=== PATIENT | male | born 1995 | race Caucasian/White ===

== ENCOUNTER 2019-04-08 04:17 | Emergency (ER) | payer OTHER ==
[~2019-04-08] VITALS: Ht 182.9 cm; Wt 140.6 kg
[~2019-04-08 04:17] MED LIST: ATOM10CA PO
[2019-04-08 04:24] VITALS: BP 128/84
[2019-04-08] MEDS: ACETAMINOPHEN/CODEINE 300/30MG 1 TAB PO ONE (04:52)
[2019-04-08 05:07] VITALS: BP 128/84
== END 2019-04-08 05:07 | disposition home or self-care (01) ==
LOC: MED 04:17
DX: K04.7 Periapical abscess without sinus (principal); Z79.899 Other long term (current) drug therapy
CPT/HCPCS: 99282

== ENCOUNTER 2021-05-30 23:44 | Emergency (ER) | payer SELFPAY ==
[~2021-05-30] VITALS: Ht 182.9 cm; Wt 127.0 kg
[2021-05-30 23:45] VITALS: BP 147/90
--- NOTE | 2021-05-30 23:45 | NUR ---
to bed ambulatory
--- NOTE | 2021-05-30 23:54 | NUR ---
DR WATERMAN AT BEDSIDE FOR EXAM
--- NOTE | 2021-05-31 | NUR ---
RECEIVED IN BED 9 WITH C/O TOOTH PAIN X 4 HOURS. 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
[2021-05-31] MEDS ORDERED: NAPR-54 PO (00:10)
[2021-05-31] MEDS ORDERED: AMOX500C25 PO (00:10)
[2021-05-31] MEDS ORDERED: ACET-8386 PO (00:10)
[2021-05-31 00:24] VITALS: BP 147/90
--- NOTE | 2021-05-31 00:24 | NUR ---
Patient discharged with v/s stable. Written and verbal after care instructions given and explained. Patient alert, oriented and verbalized understanding of instructions. Ambulatory with steady gait. All questions addressed prior to discharge. ID band removed. Patient advised to follow up with PMD. Rx of HYDROCODONE, AMOXICILLIN, AND NAPROSYN given. Patient educated on indication of medication including possible reaction and side effects. Opportunity to ask questions provided and answered.
== END 2021-05-31 00:24 | disposition home or self-care (01) ==
LOC: MED 23:44
DX: K08.89 Other specified disorders of teeth and supporting structures (principal); Z79.899 Other long term (current) drug therapy
CPT/HCPCS: 99283